=== PATIENT | male | born 1970 | race Caucasian/White ===

== ENCOUNTER 2023-01-23 15:12 | Inpatient (IN) | payer OTHER ==
[2023-01-23 16:29] VITALS: BMI 30.4
[2023-01-23] MEDS ORDERED: NALOXONE HCL (KLOXXADO) 8 MG SPRAY NS PRN (21:01)
[2023-01-23] MEDS ORDERED: guaiFENesin 600 MG TABLET.ER (FP) PO PRN (21:01)
[2023-01-23] MEDS ORDERED: LOPERAMIDE HCL 2 MG CAPSULE PO PRN (21:01)
[2023-01-23] MEDS ORDERED: ONDANSETRON *ODT* 4 MG TABLET SL PRN (21:01)
[2023-01-23] MEDS ORDERED: NALOXONE HCL 0.4 MG/ML VIAL IM PRN (21:01)
[2023-01-23] MEDS ORDERED: BENZOCAINE/MENTHOL (CHLORASEPTIC ) LOZENGE MM PRN (21:01)
[2023-01-23] MEDS ORDERED: IBUPROFEN 600 MG TABLET (FP) PO PRN (21:01)
[2023-01-23] MEDS ORDERED: IBUPROFEN 400 MG TABLET (FP) PO PRN (21:01)
[2023-01-23] MEDS ORDERED: P-EPHED 60MG/TRIPROLIDI 2.5MG TABLET PO PRN (21:01)
[2023-01-23] MEDS ORDERED: ACETAMINOPHEN 325 MG TABLET (FP) PO PRN (21:01)
[2023-01-23] MEDS ORDERED: BENZONATATE 200 MG CAPSULE PO PRN (21:01)
[2023-01-23] MEDS ORDERED: POLYETHYLENE GLYCOL (HEALTHYLAX) 3350 17 GM PACKET PO PRN (21:01)
[2023-01-23] MEDS ORDERED: DICYCLOMINE HCL 10 MG CAPSULE PO PRN (21:01)
[2023-01-23] MEDS ORDERED: BISMUTH SUBSALICYLATE 524 MG/30 ML PO PRN (21:01)
[2023-01-23] MEDS ORDERED: MAGNESIUM HYDROX 2400MG/30ML ORAL SUSPENSION 30 ML CUP PO PRN (21:01)
[2023-01-23] MEDS ORDERED: MAG HYDROX/AL HYDROX/SIMETH 30 ML UNIT-DOSE CUP PO PRN (21:01)
[2023-01-23] MEDS: THIAMINE HCL 100 MG TABLET (FP) PO SCH (21:50)
[2023-01-23] MEDS: MELATONIN 5 MG TABLETS PO SCH (21:51)
[2023-01-23] MEDS: hydrOXYzine PAMOATE 25 MG CAPSULE (FP) PO PRN (21:52)
[2023-01-23] MEDS: METHOCARBAMOL 500 MG TABLET PO PRN (21:53)
[2023-01-23] MEDS ORDERED: MELATONIN 5 MG TABLETS PO ONE (23:37)
[2023-01-23] MEDS ORDERED: hydrOXYzine PAMOATE 25 MG CAPSULE (FP) PO ONE (23:37)
[2023-01-23] MEDS ORDERED: METHOCARBAMOL 500 MG TABLET PO ONE (23:38)
[2023-01-23] MEDS ORDERED: ACETAMINOPHEN 325 MG TABLET (FP) PO ONE (23:40)
[2023-01-24] MEDS ORDERED: methaDONE HCL 10 MG TABLET (FOR DETOX USE ONLY) PO ONE (10:00)
[2023-01-24] MEDS: LIDOCAINE 5% TOPICAL PATCH TP SCH (10:15)
[2023-01-24] MEDS: PRENATAL VITAMINS W/ FOLIC ACID TABLET (FP) PO SCH (10:16)
[2023-01-24 11:47] LABS: HEMATOCRIT 40.3 % (35.4-49); MCH 28.1 pg (25.7-33.7); MCHC 34.8 g/dl (32.0-35.9); MEAN CELL VOLUME 80.7 fl (80-96); MEAN PLT VOLUME 8.1 fl (7.5-11.1); PLATELET COUNT 264 10^3/uL (134-434); RDW 13.2 % (11.9-15.9)
[2023-01-24 12:02] LABS: POTASSIUM 4.5 mmol/L (3.5-5.1)
[2023-01-24 12:19] LABS: CALCIUM 9.3 mg/dL (8.5-10.1)
[2023-01-24 12:21] LABS: ALBUMIN 3.9 g/dl (3.4-5.0); BLOOD UREA NITROGEN 13.1 mg/dL (7-18)
[2023-01-24 12:23] LABS: CREATININE 0.9 mg/dL (0.55-1.3)
[2023-01-24 12:26] LABS: BILIRUBIN,TOTAL 0.5 mg/dL (0.2-1); TOT PROT 7.2 g/dl (6.4-8.2)
[2023-01-24] MEDS: hydrOXYzine PAMOATE 25 MG CAPSULE (FP) PO PRN (22:16)
[2023-01-24] MEDS: MELATONIN 5 MG TABLETS PO SCH (22:16)
[2023-01-24] MEDS: METHOCARBAMOL 500 MG TABLET PO PRN (22:16)
[2023-01-24] MEDS: THIAMINE HCL 100 MG TABLET (FP) PO SCH (22:16)
[2023-01-24] MEDS: LIDOCAINE PATCH REMOVAL MC SCH (22:48)
[2023-01-25] MEDS: PRENATAL VITAMINS W/ FOLIC ACID TABLET (FP) PO SCH (10:03)
[2023-01-25] MEDS: LIDOCAINE 5% TOPICAL PATCH TP SCH (10:03)
[2023-01-25] MEDS: METHOCARBAMOL 500 MG TABLET PO PRN ×2 (17:38→23:35)
[2023-01-25] MEDS ORDERED: QUEtiapine FUMARATE 50 MG TABLET PO PRN (22:00)
[2023-01-25] MEDS: LIDOCAINE PATCH REMOVAL MC SCH (22:17)
[2023-01-25] MEDS: MELATONIN 5 MG TABLETS PO SCH (22:18)
[2023-01-25] MEDS: hydrOXYzine PAMOATE 25 MG CAPSULE (FP) PO PRN (22:18)
[2023-01-25] MEDS: THIAMINE HCL 100 MG TABLET (FP) PO SCH (22:18)
[2023-01-26 09:43] VITALS: BP 132/77; PULSE 63; RESP 17; TEMP 98.4
[2023-01-26] MEDS ORDERED: methaDONE HCL 10 MG TABLET (FOR DETOX USE ONLY) PO ONE (10:00)
[2023-01-26] MEDS: LIDOCAINE 5% TOPICAL PATCH TP SCH (10:08)
[2023-01-26] MEDS: PRENATAL VITAMINS W/ FOLIC ACID TABLET (FP) PO SCH (10:08)
== END 2023-01-26 11:21 | disposition home or self-care (01) | DRG 773 ==
LOC: YASAS 15:12 → Y3N 21:21
PROVIDERS: ADMIT Allergy & Immunology; ATTEND Surgery
PROC: HZ2ZZZZ Detoxification Services for Substance Abuse Treatment (ICD-10-PCS; principal; 2023-01-23)
DX: F11.23 Opioid dependence with withdrawal (principal); F31.9 Bipolar disorder, unspecified; F39 Unspecified mood [affective] disorder; E78.5 Hyperlipidemia, unspecified; Z87.891 Personal history of nicotine dependence; Z88.0 Allergy status to penicillin
CPT/HCPCS: 36415; 71046-TC-FY; 80053; 85027; 86780; 87635; 93005; 93010

== ENCOUNTER 2023-03-27 12:14 | Inpatient (IN) | payer OTHER ==
[2023-03-27 12:33] VITALS: BMI 30.1
[2023-03-27] MEDS ORDERED: NALOXONE HCL 0.4 MG/ML VIAL IM PRN (12:50)
[2023-03-27] MEDS ORDERED: MAG HYDROX/AL HYDROX/SIMETH 30 ML UNIT-DOSE CUP PO PRN (12:50)
[2023-03-27] MEDS ORDERED: ONDANSETRON *ODT* 4 MG TABLET SL PRN (12:50)
[2023-03-27] MEDS ORDERED: IBUPROFEN 400 MG TABLET (FP) PO PRN (12:50)
[2023-03-27] MEDS ORDERED: BENZOCAINE/MENTHOL (CHLORASEPTIC ) LOZENGE MM PRN (12:50)
[2023-03-27] MEDS ORDERED: BISMUTH SUBSALICYLATE 262 MG/15 ML BTL PO PRN (12:50)
[2023-03-27] MEDS ORDERED: LOPERAMIDE HCL 2 MG CAPSULE PO PRN (12:50)
[2023-03-27] MEDS ORDERED: ACETAMINOPHEN 325 MG TABLET (FP) PO PRN (12:50)
[2023-03-27] MEDS ORDERED: P-EPHED 60MG/TRIPROLIDI 2.5MG TABLET PO PRN (12:50)
[2023-03-27] MEDS ORDERED: NALOXONE HCL (KLOXXADO) 8 MG SPRAY NS PRN (12:50)
[2023-03-27] MEDS ORDERED: BENZONATATE 200 MG CAPSULE PO PRN (12:50)
[2023-03-27] MEDS ORDERED: guaiFENesin 600 MG TABLET.ER (FP) PO PRN (12:50)
[2023-03-27] MEDS ORDERED: POLYETHYLENE GLYCOL (HEALTHYLAX) 3350 17 GM PACKET PO PRN (12:50)
[2023-03-27] MEDS ORDERED: ALBUTEROL SO4 HFA INHALER IH PRN (21:00)
[2023-03-27] MEDS: METHOCARBAMOL 500 MG TABLET PO PRN (22:02)
[2023-03-27] MEDS: THIAMINE HCL 100 MG TABLET (FP) PO SCH (22:02)
[2023-03-27] MEDS: MELATONIN 5 MG TABLETS PO SCH (22:02)
[2023-03-28] MEDS: hydrOXYzine PAMOATE 25 MG CAPSULE (FP) PO PRN ×2 (01:56→09:28)
[2023-03-28] MEDS: METHOCARBAMOL 500 MG TABLET PO PRN ×2 (04:23→15:17)
[2023-03-28 08:50] LABS: HEMATOCRIT 42.1 % (35.4-49); HEMOGLOBIN 13.7 GM/dL (11.7-16.9); MCH 26.8 pg (25.7-33.7); MCHC 32.5 g/dl (32.0-35.9); MEAN CELL VOLUME 82.6 fl (80-96); MEAN PLT VOLUME 8.3 fl (7.5-11.1); PLATELET COUNT 275 10^3/uL (134-434); WHITE BLOOD COUNT 7.5 K/mm3 (4.0-10.0)
[2023-03-28 08:51] LABS: POTASSIUM 4.3 mmol/L (3.5-5.1)
[2023-03-28 08:54] LABS: ALBUMIN 3.9 g/dl (3.4-5.0); CALCIUM 8.9 mg/dL (8.5-10.1)
[2023-03-28 08:55] LABS: BLOOD UREA NITROGEN 11.6 mg/dL (7-18)
[2023-03-28 08:58] LABS: CREATININE 0.8 mg/dL (0.55-1.3)
[2023-03-28 08:59] LABS: BILIRUBIN,TOTAL 0.4 mg/dL (0.2-1); TOT PROT 7.2 g/dl (6.4-8.2)
[2023-03-28] MEDS: MAGNESIUM HYDROX 2400MG/30ML ORAL SUSPENSION 30 ML CUP PO PRN (09:29)
[2023-03-28] MEDS ORDERED: FLU VACC QS2022-23(6MOS UP)/PF 60 MCG/0.5 ML SYRINGE IM ONE (11:00)
[2023-03-28] MEDS: DICYCLOMINE HCL 10 MG CAPSULE PO PRN (11:26)
[2023-03-28] MEDS: PRENATAL VITAMINS W/ FOLIC ACID TABLET (FP) PO SCH (11:27)
[2023-03-28] MEDS: IBUPROFEN 600 MG TABLET (FP) PO PRN (15:17)
[2023-03-28] MEDS: MELATONIN 5 MG TABLETS PO SCH (22:15)
[2023-03-28] MEDS: THIAMINE HCL 100 MG TABLET (FP) PO SCH (22:15)
[2023-03-28] MEDS: QUEtiapine FUMARATE 50 MG TABLET PO SCH (22:15)
[2023-03-29] MEDS: IBUPROFEN 600 MG TABLET (FP) PO PRN (05:43)
[2023-03-29] MEDS: METHOCARBAMOL 500 MG TABLET PO PRN ×3 (05:44→21:09)
[2023-03-29] MEDS: PRENATAL VITAMINS W/ FOLIC ACID TABLET (FP) PO SCH (10:00)
[2023-03-29] MEDS: DICYCLOMINE HCL 10 MG CAPSULE PO PRN (10:00)
[2023-03-29] MEDS ORDERED: methaDONE HCL 10 MG TABLET (FOR DETOX USE ONLY) PO ONE (10:00)
[2023-03-29] MEDS: hydrOXYzine PAMOATE 25 MG CAPSULE (FP) PO PRN ×2 (10:00→21:09)
[2023-03-29] MEDS: MAGNESIUM HYDROX 2400MG/30ML ORAL SUSPENSION 30 ML CUP PO PRN (12:35)
[2023-03-29 20:34] VITALS: PULSE 63
[2023-03-29] MEDS: QUEtiapine FUMARATE 50 MG TABLET PO SCH (21:09)
[2023-03-29] MEDS: THIAMINE HCL 100 MG TABLET (FP) PO SCH (21:09)
[2023-03-29] MEDS: MELATONIN 5 MG TABLETS PO SCH (21:09)
[2023-03-30] MEDS: IBUPROFEN 600 MG TABLET (FP) PO PRN (02:15)
[2023-03-30 06:23] VITALS: BP 132/78; RESP 16; TEMP 98
[2023-03-30] MEDS: PRENATAL VITAMINS W/ FOLIC ACID TABLET (FP) PO SCH (09:01)
== END 2023-03-30 08:16 | disposition home or self-care (01) | DRG 773 ==
LOC: YASAS 12:14 → Y3N 14:52
PROVIDERS: ADMIT Allergy & Immunology; ATTEND Surgery
PROC: HZ2ZZZZ Detoxification Services for Substance Abuse Treatment (ICD-10-PCS; principal; 2023-03-27)
DX: F11.23 Opioid dependence with withdrawal (principal); F14.20 Cocaine dependence, uncomplicated; F31.9 Bipolar disorder, unspecified; G47.00 Insomnia, unspecified; Z86.59 Personal history of other mental and behavioral disorders; Z87.891 Personal history of nicotine dependence; Z88.0 Allergy status to penicillin
CPT/HCPCS: 36415; 80053; 85027; 86780; 87635; 87811